=== PATIENT | male | born 1960 | race Caucasian/White ===

== ENCOUNTER 2018-06-21 09:48 | Outpatient (CLI) | payer BC ==
--- NOTE | 2018-06-21 13:40 | Diagnostic Imaging Report ---
Indications: Testicular pain, right more than left Technique: Grayscale and duplex images of the scrotum Comparison: none Findings:The right testicle measures 3.7cm in length. It demonstrates a slightly striated echogenicity pattern. Normal Doppler flow. There is cystic dilatation of the rete testis, as well as a few small cysts within the right testicle. A large cyst involving most the right hemiscrotum, measures approximately 5 x 5.6 by 6.7 cm. It is adjacent to the testicle, contains some debris. The epididymal head is not definitely demonstrated, although questionably visualized at the superomedial aspect of the large cyst. The left testicle measures cm in length. Demonstrates a slightly striated echogenicity pattern. A small calcification is seen within the parenchyma Normal Doppler flow. Normal epididymis. There is a large left hydrocele. There is a small left scrotolith Impression: 5 x 5.6 x 6.7 cm extratesticular cyst in the right hemiscrotum, containing some debris. Most likely a large spermatocele. Large left hydrocele Small scrotolith in the left hemiscrotum Bilateral somewhat striated appearance to the testicular parenchyma. 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
== END 2018-06-21 11:48 | disposition home or self-care (01) ==
LOC: ULS 09:48
DX: N44.2 Benign cyst of testis (principal); N43.3 Hydrocele, unspecified
CPT/HCPCS: 76870